=== PATIENT | male | born 1955 | race Caucasian/White ===

== ENCOUNTER 2020-10-26 15:38 | Emergency (ER) | payer OTHER ==
[~2020-10-26 15:38] MED LIST: ASPIRIN 325MG325 MG PO; ATORVASTATIN CA20 MG PO; BYSTOLIC10 MG PO; CARDIZEM CD120 MG PO; CARTIA XT120 MG PO; CHLORTHALIDONE50 MG PO; CLONIDINE1 EAC2 TD; COLACE 100MG C100 MG PO; CYMBALTA 30 MG30 MG PO; D3-200050 MCG PO; DULOXETINE HCL60 MG PO; ELIQUIS5 MG PO; FISH OIL 1,2001 EACH PO; FLOMAX 0.4 MG0.4 MG PO; INVANZ 1 GM VIAL1 GM IV; K-DUR TAB 10 M10 MEQ PO; LANTUS100 UNIT/1 SQ; LIPITOR TAB 1010 MG PO; LIPITOR40 MG PO; LOSARTAN POTAS100 MG PO; NOVOLOG100 UNIT/1 SC; OXYBUTYNIN CHLO10 MG PO; OXYCODON-ACETA1 EAC1 PO; POLYETHYLENE GL17 GM PO; POVIDONE-IOD28.35 GM TOP; SOTALOL120 MG PO; VANCOMYCIN1.5 GM/15 IV; VITAMIN C1000 MG PO
[2020-10-26 18:18] LABS: RED BLOOD COUNT 4.92 M/UL (4.20-5.50); WHITE BLOOD COUNT 11.8 K/UL (4.5-11.0)
[2020-10-26] MEDS ORDERED: KEFLEX CAP 500500 MG PO (22:10)
[2020-10-26] MEDS ORDERED: BACTRIM DS TAB1 EACH PO (22:10)
== END 2020-10-27 01:40 | disposition home or self-care (01) ==
LOC: ER1 15:38
PROVIDERS: Physician Assistant
DX: L03.115 Cellulitis of right lower limb (principal); I73.9 Peripheral vascular disease, unspecified; E11.9 Type 2 diabetes mellitus without complications; I10 Essential (primary) hypertension; Z87.39 Personal history of other diseases of the musculoskeletal system and connective tissue; Z98.62 Peripheral vascular angioplasty status
CPT/HCPCS: 80053; 85025; 86140; 87040; 96365; 96366; 96367; 99283; J1335; J2407; J7070

== ENCOUNTER 2020-10-30 17:23 | Emergency (ER) | payer OTHER ==
[~2020-10-30 17:23] MED LIST changes: +BACTRIM DS TAB1 EACH PO; +KEFLEX CAP 500500 MG PO
[2020-10-30 18:39] LABS: HEMOGLOBIN 12.3 gm/dl (14.0-17.5); RED BLOOD COUNT 4.71 M/UL (4.20-5.50); WHITE BLOOD COUNT 5.8 K/UL (4.5-11.0)
[2020-10-30] MEDS ORDERED: INVANZ 1 GM VIAL1 GM IM (20:16)
== END 2020-10-30 20:58 | disposition home or self-care (01) ==
LOC: ER1 17:23
PROVIDERS: Physician Assistant
DX: E11.621 Type 2 diabetes mellitus with foot ulcer (principal); L97.511 Non-pressure chronic ulcer of other part of right foot limited to breakdown of skin; I73.9 Peripheral vascular disease, unspecified; I12.9 Hypertensive chronic kidney disease with stage 1 through stage 4 chronic kidney disease, or unspecified chronic kidney disease; E11.22 Type 2 diabetes mellitus with diabetic chronic kidney disease; N18.9 Chronic kidney disease, unspecified; G47.33 Obstructive sleep apnea (adult) (pediatric); Z99.89 Dependence on other enabling machines and devices; Z98.890 Other specified postprocedural states
CPT/HCPCS: 73700; 80053; 85025; 86140; 87040; 93005; 96365; 99284; J1335